=== PATIENT | female | born 1995 | race Caucasian/White ===

== ENCOUNTER 2017-09-22 08:15 | Emergency (ER) | payer OTHER ==
[~2017-09-22 08:15] MED LIST: HYDROXYZINE HCL50 M1 PO; MEDROL4 M2 PO
[2017-09-22 08:22] VITALS: BP 125/74
[2017-09-22 08:47] LABS: ABSOLUTE BASOPHIL COUNT 0.1 /CUMM (0.0-0.2); ABSOLUTE EOSINOPHIL COUNT 0.1 /CUMM (0.0-0.7); ABSOLUTE GRANULOCYTE CT 3.6 /CUMM (1.4-6.5); ABSOLUTE LYMPH COUNT 3.1 /CUMM (1.2-3.4); ABSOLUTE MONOCYTE COUNT 0.5 /CUMM (0.10-0.60); BASOPHIL % 1.1 % (0.0-2.0); GRANULOCYTE % 48.4 % (42.2-75.2); HEMATOCRIT 37.2 % (37-47); MEAN CORPUSCULAR HGB 29.6 PG (27.0-31.0); MEAN CORPUSCULAR HGB CONC 33.5 G/DL (33.0-37.0); MEAN CORPUSCULAR VOLUME 88.3 FL (81.0-99.0); MEAN PLATELET VOLUME 8.5 FL (7.4-10.4); PLATELET COUNT 256 /CUMM (130-400); RBC DISTRIBUTION WIDTH 12.9 % (11.5-14.5); RED BLOOD CELL CT 4.21 /CUMM (4.20-5.40); WHITE BLOOD CELL COUNT 7.5 /CUMM (4.8-10.8)
--- NOTE | 2017-09-22 09:39 | ED GENERAL ADULT ---
History of Present Illness General Chief Complaint: General Adult Stated Complaint: ?LOW IRON/FLU PER PT Source: patient Exam Limitations: no limitations Vital Signs & Intake/Output Vital Signs & Intake/Output ED Intake and Output 09/23 0000 0205 1200 Intake Total 120 Output Total Balance 120 Intake, Oral 120 Patient 136 lb Weight Allergies Coded Allergies: kiwi (Severe, MOUTH AND THROAT SWELLING 03/01/17) sulfamethoxazole (From BACTRIM) (Intermediate, GI UPSET 03/01/17) trimethoprim (From BACTRIM) (Intermediate, GI UPSET 03/01/17) Triage Note: PER PT WOKE UP DIZZY AND WEAK,CO SEVERE NAUSEA. FEELING TINGLING EVERYWHERE, HX OF ANEMIA HAD BLOOD WORK RECENTLY FOR SAME BUT HAS NOT GOTTEN RESULTS. LMP YESTERDAY Triage Nurses Notes Reviewed? yes Onset: Morning Duration: hour(s):, intermittent : No Patient currently breastfeeds: No HPI: Ms Reyes is a 21-year-old lady with a PMH of anxiety who presents today with complaints of dizziness and concenrs for anemia. Patient reports a history of intermittent dizziness that has been long standing, more frequent over the past 1 month, occcuring at random, occasionally worse with exertion. THis morning she woke up and experienced dizziness lasting approx 1 hr, appeared pale to her boyfriend, asociated tingling in her arms/legs, some nausea, no vomiting, blurred vision, YEPEZ, CP, palpitations, SOB, LOC and chills. She endorses intermittent episodes of nose bleeds, left sided YEPEZ, long standing history of anemia, previously prescribed iron supplementation but not taking them due to GI side effects. (Corina GAO,Ralph) Reconcile Medications Hydroxyzine Hydrochloride (Atarax) 50 MG TABLET 1 TAB PO Q6HP PRN ITCHING Meclizine HCl 25 MG TAB.CHEW 1 TAB PO TID PRN Dizziness Methylprednisolone. (Medrol) 4 MG TAB.DS.PK 1 DP PO AD ALLERGY 6 on day 1 then reduce by one tablet daily until gone (Júnior GAO,Rin) Past History Travel History Traveled to [place] past 21 day No Medical History Any Pertinent Medical History? see below for history Neurological: NONE EENT: NONE Cardiovascular: NONE Respiratory: NONE Gastrointestinal: NONE Hepatic: NONE Renal: NONE Musculoskeletal: FX COLLAR BONE Psychiatric: NONE Endocrine: NONE Blood Disorders: anemia Cancer(s): NONE GENERAL ENGINEER/Reproductive: NONE Surgical History Surgical History: none Psychosocial History What is your primary language [place] Citizen Tobacco Use: Never used Family History Hx Contributory? No (Ralph Arriaga MD) Review of Systems Review of Systems Constitutional: Reports: see HPI. EENTM: Reports: no symptoms. Respiratory: Reports: no symptoms. Cardiovascular: Reports: see HPI. (Ralph Arriaga MD) Physical Exam Physical Exam General Appearance: alert Head: atraumatic, normal appearance Eyes: Bilateral: EOMI. Ears, Nose, Throat: normal ENT inspection, hearing grossly normal Respiratory: normal breath sounds, no respiratory distress, lungs clear Cardiovascular: regular rate/rhythm Gastrointestinal: normal bowel sounds, soft, non-tender Extremities: normal inspection, normal range of motion Neurologic/Psych: awake, alert, oriented x 3, normal gait, pearl fisherman II-XII nml as tested Core Measures ACS in differential dx? No CVA/TIA Diagnosis: No Sepsis Present: No Sepsis Focused Exam Completed? No (Ralph Arriaga MD) Progress Differential Diagnoses I considered the following diagnoses in my evaluation of the patient: [BPPV, Menieres, iron defi anemia] Plan of Care: Orders Procedure Date/time Status EKG 09/22 936 Active Add-on Test (ER Only) 09/22 930 Active URINE DRUGS OF ABUSE 09/22 929 Complete URINALYSIS 09/22 929 Complete RAPID VIRAL INFLUENZA A 09/22 832 Complete HUMAN BETA HCG SCREEN 09/22 829 Complete MAGNESIUM 09/22 822 Complete COMPREHENSIVE METABOLIC PANEL 09/22 822 Complete CBC WITHOUT DIFFERENTIAL 09/22 822 Complete Laboratory Tests 09/22/17 1000: Urine Opiates Screen < 100.00, Methadone Screen < 40, Barbiturate Screen < 60, Ur Phencyclidine Scrn < 6.00, Amphetamines Screen < 100, U Benzodiazepines Scrn < 85, Urine Cocaine Screen < 50, Urine Cannabis Screen 5.70, Urinalysis LIGHT H , Urine Color YEL, Urine Clarity HAZY H, Urine pH 6.0, Ur Specific [place] 1.020, Urine Protein NEG, Urine Ketones NEG, Urine Nitrite NEG, Urine Bilirubin NEG, Urine Urobilinogen 0.2, Ur Leukocyte Esterase TRACE H, Ur Microscopic SEDIMENT EXAMINED, Urine RBC RARE, Urine WBC 1-3 H, Ur Epithelial Cells MANY H , Urine Bacteria MOD H, Urine Mucus MOD H, Urine Hemoglobin NEG, Urine Glucose NEG 09/22/17 0830: Anion Gap 16, Estimated GFR > 60, BUN/Creatinine Ratio 26.7 H, Glucose 100 H, Calcium 9.3, Magnesium 1.8, Total Bilirubin 0.1 L, AST 25, ALT 50, Alkaline Phosphatase 49, Total Protein 6.9, Albumin 4.6, Globulin 2.3, Albumin/Globulin Ratio 2.0, Total Beta HCG NEGATIVE, CBC w Diff NO MAN DIFF REQ, RBC 4.21, MCV 88.3, MCH 29.6, MCHC 33.5, RDW 12.9, MPV 8.5, Gran % 48.4, Lymphocytes % 41.7, Monocytes % 6.8, Eosinophils % 2.0, Basophils % 1.1, Absolute Granulocytes 3.6, Absolute Lymphocytes 3.1, Absolute Monocytes 0.5, Absolute Eosinophils 0.1, Absolute Basophils 0.1 Microbiology 09/22 0830 NASOPHARYN: Influenza Virus A & B Rapid Smear - COMP Initial ED EKG: normal axis, normal intervals, normal QRS complex, NSR (Corina GAO,[place]) Departure Departure Time of Disposition: 1058 Disposition: HOME OR SELF CARE Condition: Stable Clinical Impression Primary Impression: Vertigo Secondary Impressions: Acute labyrinthitis Referrals: Unknown (PCP/Family) Additional Instructions: You were seen in the emergency room for dizziness, tingling in her extremities and intermittent nosebleeds. Please take the following medications as directed. Use over the counter nasal spray to keep the nasal passages moisturized. Please follow-up with your PCP after discharge to go over the results from today 's visit. There may be nonspecific findings from ER visit that may require further workup and monitoring by your PCP. If you had a laceration associated with this visit there is a chance that a foreign body may have been retained. Please follow-up with your physician in 3- 5 days for a wound check. If you had an x-ray done there is a chance that a fracture could have been missed on the initial reading and you should follow-up with your PCP for repeat imaging if symptoms persist/worsen. In the event that your blood pressure was elevated in the emergency room, please have it rechecked by your PCP within the next 48 hours. If narcotics/controlled substance was prescribed for you in the ED, avoid driving/operating heavy machinery while on these medications. These medications can cause constipation for which you may require stool softeners. Thank you for choosing [facility] emergency room. Please return to the emergency room immediately if you have any concerns of worsening symptoms. Departure Forms: Customer Survey General Discharge Information Prescriptions: Current Visit Scripts Meclizine HCl 1 TAB PO TID PRN Dizziness #30 TAB (Ralph Arriaga MD) Resident Co-Sign Statement Statement: ED Attending supervision documentation- [X] I saw and evaluated the patient. I have also reviewed all the pertinent lab results and diagnostic results. I agree with the findings and the plan of care as documented in the Resident's documentation. [X] I have reviewed the ED Record and agree with the Resident's documentation. [] Additions or exceptions (if any) to the Resident's note and plan are summarized below: [] (Júnior GAO,Rin) Critical Care Note Critical Care Note Critical Care Time: non-applicable (Ralph Arriaga MD)
[2017-09-22] MEDS ORDERED: MECLIZINE HCL25 M2 PO (11:02)
== END 2017-09-22 11:00 ==
LOC: ERH 08:15
PROVIDERS: Emergency Medicine
DX: H83.09 Labyrinthitis, unspecified ear (principal)
CPT/HCPCS: 80307; 81001; 87804; 87804-59; 93005; 93010

== ENCOUNTER 2017-11-15 16:29 | Emergency (ER) | payer OTHER ==
[~2017-11-15 16:29] MED LIST changes: +MECLIZINE HCL25 M2 PO
--- NOTE | 2017-11-15 16:41 | ED ANKLE/FOOT INJURY COMPLAINT ---
History of Present Illness General Chief Complaint: Foot or Ankle Injury Stated Complaint: R FOOT PAIN X 1 WEEK Source: patient Exam Limitations: no limitations Vital Signs & Intake/Output Vital Signs & Intake/Output Vital Signs Date Time Temp Pulse Resp B/P B/P Pulse O2 O2 Flow FiO2 Mean Ox Delivery Rate 11/15 1808 98.1 64 18 126/70 98 Room Air 11/15 1637 99 Room Air 11/15 1633 97.0 65 20 129/82 98 Allergies Coded Allergies: kiwi (Severe, MOUTH AND THROAT SWELLING 03/01/17) sulfamethoxazole (From BACTRIM) (Intermediate, GI UPSET 03/01/17) trimethoprim (From BACTRIM) (Intermediate, GI UPSET 03/01/17) Reconcile Medications No Known Home Medications Triage Note: PER PT CO RT TOP OF FOOT CRAMPING X 1 WEEK DENIES TRAUMA LMP 2 WEEKS AGO HAS NOT TAKEN ANY OTC MEDS FOR THIS PAIN Triage Nurses Notes Reviewed? yes Occurred: last week Duration: week(s): (1), constant, continues in ED, getting worse Timing: single episode today Severity: mild, moderate Pain/Injury Location: Right: Foot. Method of Injury: unknown No Modifying Factors: none Associated Symptoms: stiffness LMP (ages 10-50): date (2WEEKS ) : No Patient currently breastfeeds: No HPI: 21-year-old female with no past medical history of sensory evaluation of pain in her right foot. She states that over the past 1-2 weeks she's had pain over the dorsum of the right foot. It is worse with movement. There is no trauma OR TRIGGERING event. The pain is gradually getting worse. No numbness or tingling no swelling no redness. No ankle pain pain or knee pain. She is not taking any medicine for this. She rates the pain as an 8 out of 10. She is able to walk that makes it worse. (Sivakumar Marrero) Past History Travel History Traveled to [place] past 21 day No Medical History Any Pertinent Medical History? see below for history Neurological: NONE EENT: NONE Cardiovascular: NONE Respiratory: NONE Gastrointestinal: NONE Hepatic: NONE Renal: NONE Musculoskeletal: FX COLLAR BONE Psychiatric: NONE Endocrine: NONE Blood Disorders: anemia Cancer(s): NONE TRAVELING AUDITOR/Reproductive: NONE Surgical History Surgical History: none Psychosocial History What is your primary language [place] Tobacco Use: Never used Family History Hx Contributory? No (Sivakumar Marrero) Review of Systems Review of Systems Constitutional: Reports: no symptoms. EENTM: Reports: no symptoms. Respiratory: Reports: no symptoms. Cardiovascular: Reports: no symptoms. GI: Reports: no symptoms. Genitourinary: Reports: no symptoms. Musculoskeletal: Reports: joint pain, joint swelling, muscle pain. Skin: Reports: no symptoms. Neurological/Psychological: Reports: no symptoms. Hematologic/Endocrine: Reports: no symptoms. Immunologic/Allergic: Reports: no symptoms. All Other Systems: Reviewed and Negative (Sivakumar Marrero) Physical Exam Physical Exam General Appearance: well developed/nourished, no apparent distress, alert, awake Head: atraumatic, normal appearance Eyes: Bilateral: normal appearance, PERRL, EOMI. Ears, Nose, Throat: normal pharynx, normal ENT inspection, hearing grossly normal Neck: normal inspection, supple, full range of motion Cardiovascular/Respiratory: no respiratory distress Back: normal inspection, normal range of motion, no vertebral tenderness Leg/Knee/Thigh Left: normal range of motion, normal inspection Leg/Knee/Thigh Right: normal range of motion, normal inspection Ankle Left: normal inspection, normal range of motion Ankle Right: normal inspection, normal range of motion Foot Left: normal inspection, normal range of motion Foot Right: normal inspection, normal range of motion, THERE IS PAIN TO PALPATION OVER THE DORSUM OF THE RIGHT FOOT NO SWELLING OR ERYTHEMA. nO BRUISING NO CREPITUS. fULL RANGE OF MOTION OF THE RIGHT FOOT AND ANKLE IS INTACT. nEUROVASCULAR IS INTACT. pATIENT IS ABLE TO WALK AND BEAR WEIGHT. Neuro/Vascular: normal motor function, normal sensation Tendon: normal tendon function Psychiatric: awake, alert, oriented x 3 Skin: intact, normal color, warm/dry (Sivakumar Marrero) Progress Differential Diagnosis: cellulitis, fracture, dislocation, sprain, contusion Plan of Care: Orders Procedure Date/time Status Durable Medical Equipment 11/15 1747 Active URINE 11/15 165 Complete Laboratory Tests 11/15/17 1650: Urine Test NEGATIVE Patient seen and evaluated she is reporting pain in the right foot without known trauma or triggering event. No abnormal findings on exam. Neurovascular supply intact x-rays negative for fracture. Suspect sprain. Advised rest ice elevation compression. Jace wrap applied. Follow-up with primary care doctor Tylenol ibuprofen for pain. Patient given crutches. Avoid excessive weightbearing discussed return precautions patient agrees with plan. Diagnostic Imaging: Viewed by Me: Radiology Read. Discussed w/RAD: Radiology Read. Radiology Impression: PATIENT: MARCY AGUIRRE PRESENT AGE: 21 PATIENT ACCOUNT NO: [id number] : 97 LOCATION: [facility] ORDERING PHYSICIAN: Sivakumar KUMARI SERVICE DATE: 11/15/17 EXAM TYPE: RAD - XRY- FOOT COMPLETE, R EXAMINATION: XR FOOT, RIGHT CLINICAL INFORMATION: 21-year-old girl with right dorsal foot pain. COMPARISON: None TECHNIQUE: AP, lateral, and oblique views of the right foot. FINDINGS: There is no evidence of acute fracture. Alignment remains anatomic. Articular cartilage spaces are preserved. IMPRESSION: No evidence of acute fracture or dislocation. DICTATED BY: Abigail Longoria MD DATE/TIME DICTATED:11/15/171731 ATHLETIC FIELD CUSTODIAN:SHERITA DATE/TIME TRANSCRIBED:11/15/171731 CONFIDENTIAL, DO NOT COPY WITHOUT APPROPRIATE AUTHORIZATION. (Sivakumar Marrero) Departure Departure Disposition: HOME OR SELF CARE Condition: Stable Clinical Impression Primary Impression: Foot sprain Referrals: Unknown (PCP/Family) Additional Instructions: Rest, avoid excessive weightbearing and walking. Apply ice 15-20 minutes every few hours. Wear Jace wrap. Ibuprofen 800 mg every 8 hours with food as needed for pain. Follow-up with your primary care doctor. Monitor symptoms and return with any concerns. Departure Forms: Customer Survey General Discharge Information Prescriptions: Current Visit Scripts No Known Home Medications (Sivakumar Marrero) PA/INSPECTOR COLD WORKING Co-Sign Statement Statement: ED Attending supervision documentation- [] I saw and evaluated the patient. I have also reviewed all the pertinent lab results and diagnostic results. I agree with the findings and the plan of care as documented in the PA's/INSPECTOR COLD WORKING's documentation. [X] I have reviewed the ED Record and agree with the PA's/INSPECTOR COLD WORKING's documentation. [] Additions or exceptions (if any) to the PAs/INSPECTOR COLD WORKING's note and plan are summarized below: [] (Júnior GAO,Rin)
--- NOTE | 2017-11-15 17:37 | RADIOLOGY REPORT ---
EXAMINATION: XR FOOT, RIGHT CLINICAL INFORMATION: 21-year-old girl with right dorsal foot pain. COMPARISON: None TECHNIQUE: AP, lateral, and oblique views of the right foot. FINDINGS: There is no evidence of acute fracture. Alignment remains anatomic. Articular cartilage spaces are preserved. IMPRESSION: No evidence of acute fracture or dislocation.
[2017-11-15 18:08] VITALS: BP 126/70
== END 2017-11-15 18:08 ==
LOC: ERH 16:29
DX: S93.601A Unspecified sprain of right foot, initial encounter (principal); X58.XXXA Exposure to other specified factors, initial encounter; Y92.9 Unspecified place or not applicable; Y93.9 Activity, unspecified
CPT/HCPCS: 73630-RT; 81025